=== PATIENT | male | born 1960 | race Caucasian/White ===

== ENCOUNTER 2020-10-17 11:13 | Emergency (ER) | payer OTHER ==
[2020-10-17] MEDS ORDERED: ATIVAN1 MG PO (13:21)
== END 2020-10-17 13:10 | disposition home or self-care (01) ==
LOC: FER 11:13
DX: F41.9 Anxiety disorder, unspecified (principal); F17.210 Nicotine dependence, cigarettes, uncomplicated; Z85.038 Personal history of other malignant neoplasm of large intestine; Z90.49 Acquired absence of other specified parts of digestive tract; Z93.3 Colostomy status
CPT/HCPCS: 99283